=== PATIENT | female | born 1960 | race Caucasian/White ===

== ENCOUNTER 2025-03-27 16:38 | Inpatient (IN) | payer BC, SELFPAY ==
[2025-03-27] VITALS (13 sets, daily range): BP systolic 91–151; BP diastolic 52–107; PULSE 83–104; BMI 30.3; BMI 29.6
[2025-03-27 12:34] LABS: Glucose - Point of Care 107 mg/dl (70-99)
--- NOTE | 2025-03-27 12:35 | EDRN ---
ED Resident MD Dr. Echavarria in to see pt.
[2025-03-27 12:37] LABS: Hematocrit 39.5 % (37.0-47.0); Hemoglobin 13.7 g/dL (12.0-16.0); Mean Corp Hgb Conc. 34.7 g/dL (33.0-37.0); Mean Corpuscular Volume 91.0 fL (81.0-99.0); Nucleated Red Blood Cells % 0 %; Platelet Count 221 10^3/uL (130-400); Red Cell Dist. Width 13.0 % (11.5-14.5)
[2025-03-27] MEDS: NSS 1000 IV (12:38)
[2025-03-27] MEDS: ZOFRAN 4 MG IV (12:39)
--- NOTE | 2025-03-27 12:48 | EDRN ---
Pt w/ nausea and very somnolent and not wanting to speak.
--- NOTE | 2025-03-27 12:53 | ED.GENMED ---
History of Present Illness
<Bria Echavarria MD, Resident - Last Filed: 03/27/25 15:44>
General
Chief Complaint: Abdominal Symptoms
Source: patient and spouse
Time Seen by Provider: 03/27/25 12:17
History of Present Illness
History of Present Illness:
Patient is a 65-year-old female with past medical history significant for hyperlipidemia and obesity for which she is on statin and Mounjaro. She came in after she had a fall at [employer]. she does not remember the incident we's
And is currently feeling very tired, weak, exhausted, warm and nauseous.
She and her ran a couple of errands this morning, went out for breakfast, after that she went for shopping and the came back home. After a while, noticed her location, he called and was told by the EMS services that she was
being transferred to the ER because she had a fall at the store. Talking to the patient, she said that she does not remember the fall, it has not happened before, she is not on any blood thinners, she does not remember if she hit her head. Denies
any bleeding from ear nose or throat.
She has been on Mounjaro 7.5 mg for last 4 months and overall she has lost about 20 pounds throughout the year with weight loss medications.
Past History
<Bria Echavarria MD, Resident - Last Filed: 03/27/25 15:44>
Past History
ED Past Medical History: Hypercholesterolemia and Other (Obesity)
ED Past Surgical History: None
Social History
Tobacco: Non-smoker
Alcohol: Occasional
Drug: None
Personal:
Living: with family
Review of Systems
<Bria Echavarria MD, Resident - Last Filed: 03/27/25 15:44>
Review of Systems
Constitutional: Reports other (feels very weak)
EENT: Reports no symptoms
Respiratory: Reports no symptoms
Cardiac: Reports no symptoms
: Reports no symptoms
Musculoskeletal: Reports no symptoms
Skin: Reports no symptoms
Neurological: Reports no symptoms
Phy Exam
<Bria Echavarria MD, Resident - Last Filed: 03/27/25 15:44>
General Physical Exam
General Presentation: moderate distress
General age: appears stated age
General Skin: warm
General Habitus: normal
General Hydration: appears well hydrated
Cardiovascular Exam
Cardiovascular Exam: regular rate/rhythm, no edema, no gallop, no murmur and normal peripheral pulses
Pulmonary Exam
Pulmonary Exam: lungs clear and no respiratory distress
Gastrointestinal Exam
Gastrointestinal Exam: normal bowel sounds, non tender and soft
Neurological Exam
Neurological Exam: alert, oriented x3, no motor deficits and speech normal
Musculoskeletal Exam
Musculoskeletal Exam: full ROM
Skin Exam
Skin Exam: normal color and warm/dry
Psychiatric Exam
Psychiatric Exam: normal mood/affect
Course
<Bria Echavarria MD, Resident - Last Filed: 03/27/25 15:44>
Orders/Labs/Results
Orders:
Orders
03/27/25 12:24
Electrocardiogram (*1) Urgent
Reason for Study: Chest Pain
Cardiac Monitoring- Treatment ONCE
EKG- Treatment ONCE
03/27/25 12:30
Complete Blood Count/With Diff Urgent
Comprehensive Metabolic Panel Urgent
Troponin I Urgent
03/27/25 12:35
Ondansetron Injectable [Zofran] 4 mg .ROUTE .STK-MED ONE
03/27/25 12:37
0.9% Sodium Chloride 500 ml [Nss] 1,000 ml IV BOLUS
03/27/25 12:39
Ondansetron Injectable [Zofran] 4 mg IV NOW STA
03/27/25 13:01
Orthostatic VS- Treatment ONCE
03/27/25 13:10
CT Head W/o Iv Contrast Urgent
Comment:
Reason For Exam: mental status change
03/27/25 13:12
Urinalysis Reflex To Culture Urgent
03/27/25 13:19
D-Dimer Urgent
03/27/25 13:22
Prochlorperazine [Compazine] 10 mg IV NOW STA
03/27/25 13:23
Prochlorperazine [Compazine] 10 mg .ROUTE .STK-MED ONE
03/27/25 14:20
NEUROLOGY CONSULT Urgent
Consulting Provider: Riky Benavidez
Was physician already notified: Yes
Reason for consult: mental status change
03/27/25 14:44
MR Brain W/o & With Contrast Routine
Comment:
Reason For Exam: syncope suspected seizure
Recent pill cam endoscopy?: No
03/27/25 14:45
EEG Routine Routine
Reason for Exam: suspected seizure
03/27/25 14:51
Orthostatic Vital Signs As Directed
Orthostatic VS Frequency: BID
Abnormal Lab Results
03/27/25 03/27/25 03/27/25
12:30 12:33 13:19
MCH 31.6 H pg
(27.0-31.0)
Abs Immat Gran (auto) 0.1 H 10^3/uL
(0-0.05)
Immature Gran % 0.7 H %
(0-0.5)
Lymphocytes % 17.2 L %
(20.5-51.1)
D-Dimer 0.71 H ug/mlFEU
(0.00-0.50)
Glucose 111 H mg/dl
(70-99)
POC Glucose 107 H mg/dl
(70-99)
03/27/25 12:30
03/27/25 12:30
Vital Signs
Initial and Last Documented VS:
Initial Vital Signs
Pulse Resp BP Pulse Ox
93 18 109/74 95
03/27/25 11:47 03/27/25 11:47 03/27/25 11:47 03/27/25 11:47
Last Documented Vital Signs
Pulse Resp BP Pulse Ox
84 19 137/75 97
03/27/25 15:15 03/27/25 15:15 03/27/25 15:00 03/27/25 15:15
<Matt Nelson MD - Last Filed: 03/27/25 15:55>
Orders/Labs/Results
Orders:
Orders
03/27/25 12:24
Electrocardiogram (*1) Urgent
Reason for Study: Chest Pain
Cardiac Monitoring- Treatment ONCE
EKG- Treatment ONCE
03/27/25 12:30
Complete Blood Count/With Diff Urgent
Comprehensive Metabolic Panel Urgent
Troponin I Urgent
03/27/25 12:35
Ondansetron Injectable [Zofran] 4 mg .ROUTE .STK-MED ONE
03/27/25 12:37
0.9% Sodium Chloride 500 ml [Nss] 1,000 ml IV BOLUS
03/27/25 12:39
Ondansetron Injectable [Zofran] 4 mg IV NOW STA
03/27/25 13:01
Orthostatic VS- Treatment ONCE
03/27/25 13:10
CT Head W/o Iv Contrast Urgent
Comment:
Reason For Exam: mental status change
03/27/25 13:12
Urinalysis Reflex To Culture Urgent
03/27/25 13:19
D-Dimer Urgent
03/27/25 13:22
Prochlorperazine [Compazine] 10 mg IV NOW STA
03/27/25 13:23
Prochlorperazine [Compazine] 10 mg .ROUTE .STK-MED ONE
03/27/25 14:20
NEUROLOGY CONSULT Urgent
Consulting Provider: Riky Benavidez
Was physician already notified: Yes
Reason for consult: mental status change
03/27/25 14:44
MR Brain W/o & With Contrast Routine
Comment:
Reason For Exam: syncope suspected seizure
Recent pill cam endoscopy?: No
03/27/25 14:45
EEG Routine Routine
Reason for Exam: suspected seizure
03/27/25 14:51
Orthostatic Vital Signs As Directed
Orthostatic VS Frequency: BID
Abnormal Lab Results
03/27/25 03/27/25 03/27/25
12:30 12:33 13:19
MCH 31.6 H pg
(27.0-31.0)
Abs Immat Gran (auto) 0.1 H 10^3/uL
(0-0.05)
Immature Gran % 0.7 H %
(0-0.5)
Lymphocytes % 17.2 L %
(20.5-51.1)
D-Dimer 0.71 H ug/mlFEU
(0.00-0.50)
Glucose 111 H mg/dl
(70-99)
POC Glucose 107 H mg/dl
(70-99)
03/27/25 12:30
03/27/25 12:30
Vital Signs
Initial and Last Documented VS:
Initial Vital Signs
Pulse Resp BP Pulse Ox
93 18 109/74 95
03/27/25 11:47 03/27/25 11:47 03/27/25 11:47 03/27/25 11:47
Last Documented Vital Signs
Pulse Resp BP Pulse Ox
84 19 137/75 97
03/27/25 15:15 03/27/25 15:15 03/27/25 15:00 03/27/25 15:15
<Bria Echavarria MD, Resident - Last Filed: 03/27/25 15:44>
MDM/Problems Addressed
Differential Diagnosis Includes:
Stroke/TIA
Seizures
Vasovagal syncope
Arrhythmias
Metabolic
MDM/Problems Addressed:
CBC and CMP within normal limits
CT scan done-no acute abnormalities noted
EKG without any acute abnormalities
Troponin normal
Neurology consult appreciated-high likelihood of seizure activity given the postictal confusion and tongue bite. Recommended further evaluation on an inpatient basis-would admit on hospitalist service
<Bria Echavarria MD, Resident - Last Filed: 03/27/25 15:44>
*Pulse Oximetry
SaO2: 99
Oxygen Mode of Delivery: Room air
Patient hypoxic: no
*Critical Care Note
Total Time (30-74mins, 75-104mins- exclusive of procedures): Not Applicable
ED Attending Note
<Bria Echavarria MD, Resident - Last Filed: 03/27/25 15:44>
-
Portions of this chart may have been created with voice recognition software.� Occasional wrong word or��sound alike� substitutions may have occurred due to the inherent limitations of voice recognition software.
<Matt Nelson MD - Last Filed: 03/27/25 15:55>
ED Attending Note
Patient seen and examined by attending physician: Yes
ED Attending Note:
Patient with history of hypercholesterolemia, current taking Mounjaro for weight loss, presents to ED after unwitnessed syncopal episode while she was shopping at [employer] this morning. 911 dispatched by employers at [employer]. When arrived at scene,
patient was awake, but had already vomited and complaining of generalized weakness. Patient does report having remembered entering [employer] to purchase plants, but that is her last recollection until 911 or. Patient denies headache. Patient is
still complaining of feeling nauseous. Denies blurred vision. Denies loss of sensation or weakness. Denies difficulty with speech. Patient is quite somnolent but easily arousable and appropriate answering questions. Per spouse at bedside, he
did not detect anything different with the patient this morning. In fact, patient was able to go to a car dealership to have the car looked into and had breakfast with her before they . Of note, approxi-14 years ago, patient
significant lightheaded episode while at [employer], requiring evaluation in the hospital. Since then, patient has been following up with local major case detective annually. Denies recent illness. Denies recent change in medications or diet. Denies
previous history of similar symptoms. In addition, spouse reports vacationing down in [place] recently. They did drive down to [place], but made multiple trips following the way.
Physical Exam
General: mild distress, acutely ill. afebrile
Head: nc/at. eomi
Neck: supple. no meningeal signs.
Heart: s1/s2 regular rate and rhythm
Lungs: no acute respiratory distress. clear bilaterally
Abdomen: normal bowel sounds. not tender.
Neuro: somnolent but easily arousable to voice and appropriate. no focal neurological deficits
Skin: no rash
Psychiatric: well kept. interactive and cooperative
Extremities: no edema. no calf tenderness.
CT head: no acute findings.
Patient evaluated in ED by neurology, Dr. Benavidez, who recommends patient to be admitted for further evaluation and treatment, including obtaining MRI brain along with EEG.
DMV - temporary license suspension, to be completed by neurology office
Discharge Plan
Departure
Patient Disposition: Admit
Date of Disposition: 03/27/25
Time of Disposition: 15:41
Presentation/result/management discussed w/ accepting MD/DO: Hospitalist
Patient with high blood pressure during this ER visit?: No
Discharge Problem:
Post-ictal confusion, Syncope
Interventions
Interventions:
*Risk Screen - Suicide Last Done: 03/27/25 12:16
*General Assessment Last Done: 03/27/25 12:16
*Neglect/Abuse Screening Last Done: 03/27/25 12:16
*ED COVID-19 Vaccine History Last Done: 03/27/25 12:16
*ED Influenza Vaccine History Last Done: 03/27/25 12:16
[facility] Fall Risk Assessment Tool Last Done: 03/27/25 12:16
GP-Tfsueg-Kozglhqwnl Assessment Last Done: 03/27/25 12:40
ED- Cardiac Assessment Last Done: 03/27/25 12:40
ED- Neurological Assessment Last Done: 03/27/25 12:40
Discharge Date and Time
Print Language: GREEK
[2025-03-27 13:07] LABS: ALT (SGPT) 27 U/L (0-35); AST (SGOT) 29 U/L (14-36); Albumin 4.3 g/dl (3.5-5.0); Alkaline Phosphatase 76 U/L (38-126); Blood Urea Nitrogen 9 mg/dl (7-17); Calcium 9.3 mg/dl (8.4-10.2); Carbon Dioxide 24 mmol/L (22-30); Chloride 105 mmol/L (98-107); Estimated Creatinine Clearance 83 ml/min; Glucose 111 mg/dl (70-99); Potassium 4.2 mmol/L (3.5-5.1); Sodium 136 mmol/L (135-145); Total Protein 7.0 g/dl (6.3-8.2); eGFR > 60.00
--- NOTE | 2025-03-27 13:10 | EDRN ---
Pt has orthostats ordered though very somnolent at this time. Will monitor pt for less somnolence prior to to getting orthostats. Will informed Dr. Echavarria.
[2025-03-27 13:19] LABS: Troponin I 0.013 ng/ml
--- NOTE | 2025-03-27 13:26 | EDRN ---
Dr. Nelson in formed of pt's present status of alertness and return of nausea and compazine ordered for nausea and he wants CT ARUNA w/ amortization schedule clerk informed.
[2025-03-27] MEDS: COMPAZINE 10 MG IV (13:27)
--- NOTE | 2025-03-27 13:30 | EDRN ---
Dr. Nelson in room w/pt at this time.
[2025-03-27 13:48] LABS: D-Dimer 0.71 ug/mlFEU (0.00-0.50)
--- NOTE | 2025-03-27 14:06 | EDRN ---
Pt's color sl improved, still weak and somnolent. States nausea gone for now.
--- NOTE | 2025-03-27 14:18 | CON.NEURO ---
Addendum entered and electronically signed by Riky Benavidez MD 03/27/25 19:08:
The patient was seen and examined today along with the nurse practitioner Mariya Del Toro. I agree with the assessment and management and plan of the nurse practitioner. I personally performed the medical decision making of this encounter and my
assessment and management plan as given below.
The patient is a 65-year-old female with history of hypercholesterolemia who presented to the ER on 03/27/2025, by the EMS services because she had a fall at a store. The patient does not remember the event and she says that she woke up while she
was being transferred by the ambulance and apparently she was in a postictal state for about 15 to 20 minutes.. The patient complains of a left-sided tongue bite however she denies any urinary incontinence. The patient's and the daughter
were present at the bedside to provide the history. The patient felt dizzy and also had vomited and complained of generalized weakness. The patient's mental status has returned to her baseline as per her and her daughter.
The patient appears to have had a seizure which appears to be more likely than a syncopal episode, as she had a significant left-sided tongue laceration and she had a postictal state lasting about 15 to 20 minutes. The plan is to obtain MRI of the
brain with and without contrast, EEG and to check orthostatic vitals. The patient does not have a history of seizures. This was likely a new onset seizure, therefore, the plan is not to start her on antiepileptic medication at this time. Patient
also gives a history of sleep deprivation which could have triggered the seizure.
Seizure precautions including no driving for 6 months and reporting to the [facility] as per law. The seizure precautions was discussed with the patient, patient's and patient's daughter, and they all verbalized understanding of our discussion.
Neurologic examination:
Alert and oriented x 3
Speech is clear
The cranial nerves II through XII are grossly intact
The visual mclaughlin are grossly full to confrontation bilaterally
The motor strength is grossly 5/5 bilaterally in the upper and lower extremities
Sensation is grossly intact
The cerebellar examination does not show limb ataxia
Original Note:
Neuro Assessment/Plan
Assessment
Patient is a 65 year old female with history of hypercholesterolemia, current taking Mounjaro for weight loss, presented to [facility] on 03/27/2025 after unwitnessed syncopal episode
Head CT: Unremarkable unenhanced CT of the brain
Plan
Differentials: seizure highly likely given post ictal state and tongue laceration vs syncope vs orthostatic hypotension
-obtain brain MRI with and without contrast
-obtain EEG
-seizure precautions
-orthostatic VS BID
-pending testing and further episodes may need antiepileptic medications
All questions encouraged and answered, plan of care discussed with Dr. Benavidez, patient and family
Consultation
Order
Date of Consultation: 03/27/25
Requesting Provider: ED
Reason for Consult: syncope
Subjective/Objective
Subjective Data
Date of Service: March 27, 2025
Patient is a 65 year old female with history of hypercholesterolemia, current taking Mounjaro for weight loss, presented to [facility] on 03/27/2025 after unwitnessed syncopal episode while she was shopping at [employer] this morning. 911 dispatched by
employers at [employer]. When arrived at scene, patient was awake, but had already vomited and complaining of generalized weakness. Patient does report having remembered entering [employer] to purchase plants, and then nothing until she was in the
ambulance. She states before she passed out she felt 'weird.' Patient denies headache, SOB, chest pain. Denies urinary incontinence but has tongue laceration on left side indicating that she bit her tongue during episode. Patient is still
complaining of feeling nauseous. Denies blurred vision. Denies loss of sensation or weakness. Denies difficulty with speech. Patient in ED initially somnolent but easily arousable and appropriate answering questions. Per spouse and daughter at
bedside, did not detect anything different with the patient this morning. In fact, patient was able to go to a car dealership to have the car looked into and had breakfast with her before they . Of note, approximately 14 years
ago, patient significant lightheaded episode while at [employer], requiring evaluation in the hospital. At that time she went on a roller coaster and after felt dizzy, lightheaded and nauseous but did not lose consciousness. Since then, patient
has been following up with local hand bootmaker annually. Denies recent illness. Denies recent change in medications or diet. Denies previous history of similar symptoms. Does admit to stress and sleep deprivation. Denies history or family history
of seizures. In ED labs unrevealing and head CT unremarkable. Per family mentation improving.
Objective Data
Vital Signs
Pulse Resp BP Pulse Ox
85 19 138/95 99
03/27/25 14:03 03/27/25 13:30 03/27/25 14:03 03/27/25 13:30
Lab Results
03/27/25 12:30
03/27/25 12:30
Sodium 136 mmol/L (135-145) 03/27/25 12:30
Potassium 4.2 mmol/L (3.5-5.1) 03/27/25 12:30
BUN 9 mg/dl (7-17) 03/27/25 12:30
Glucose 111 mg/dl (70-99) H 03/27/25 12:30
Calcium 9.3 mg/dl (8.4-10.2) 03/27/25 12:30
Patient Allergies
No Known Allergies Allergy (Unverified 03/27/25 11:46)
Physical Exam
-
General: Appears Stated Age
HEENT: Normocephalic, Atraumatic and Anicteric
Neck: Full Range of Motion
Respiratory: No Dyspnea
Cardiac: No JVD
GI: Non-distended
Skin: Unremarkable
Extremities: No Clubbing, No Cyanosis and No Edema
Psych: Unremarkable
Extended Neurological Exam
Mood & Affect: Mood Unremarkable
Attention Span & Concentration: Awake, Alert, Interactive and No Difficulty with 2 Step Request
Memory: Unremarkable
Speech: Quality Unremarkable, Quantity Unremarkable and Rate of Production Unremarkable
Cranial Nerve VII: Facial Symmetry: Normal Facial Symmetry
Cranial Nerve VIII: Hearing: Unremarkable Hearing to Normal Conversational Volume
Muscle Strength, Overall: Full Throughout
Pronator Drift: No Drift in Upper Extremities and No Drift in Lower Extremities
Data Reviewed
-
CT Head: Report Reviewed and Image Reviewed
Medical Test Reports: Report Reviewed
Labs: Report Reviewed
Reviewed with: Physician and Patient
Old Records: Summarized
Past History
Past History
ED Past Medical History: Hypercholesterolemia and Other (Obesity)
ED Past Surgical History: None
Family/Social History
Tobacco: Non-smoker
Alcohol: Occasional
Drug: None
Personal:
Living: with family
--- NOTE | 2025-03-27 14:40 | EDRN ---
Neurologist Dr. Benavidez and MOLYBDEN[employer] STEAMER OPERATOR in to see pt at this time.
--- NOTE | 2025-03-27 15:30 | EDRN ---
Pt screening for MRI at this time.
--- NOTE | 2025-03-27 15:44 | EDRN ---
Pt is wide awake, talkative, and color is normal
--- NOTE | 2025-03-27 16:11 | HPS.HSE ---
Family Physician
-
Family Physician: Aurelio Saleh
Chief Complaint
-
Syncope
History of Present Illness
65-year-old female with history of hyperlipidemia presents after unwitnessed syncopal episode . Patient notes that she was in a shopping center and she passed out and the next thing she remembers that she was in the ambulance. On arrival to the ED
head CT is unremarkable. She does have a tongue laceration on the left. Pt notes that she may had urinary incontinence during the event. Patient is on Mounjaro for weight loss.
Medical History
Past Medical History
Past Medical History: Reports Hypercholesterolemia
Past Surgical History: Reports Gynocological (Tubal ligation)
Social History
Tobacco: Non-smoker
Alcohol: None
Drug: None
Personal:
Living: With Family
Employment: Retired
Family History
Family History: Not pertinent
Allergies / Home Medications
Allergies reflects when Allergies were last updated in [facility].
Home Medications with original date entered in [facility]
Allergy/Medication List:
Allergies
Allergy/AdvReac Type Severity Reaction Status Date / Time
No Known Allergies Allergy Unverified 03/27/25 11:46
Review of Systems
-
History Source: Patient
A 12 point ROS was completed and negative except as noted: Yes
Physical Exam
Vital Signs
Vital Signs
Pulse Resp BP Pulse Ox
84 19 137/75 97
03/27/25 15:15 03/27/25 15:15 03/27/25 15:00 03/27/25 15:15
Physical Exam
General: Comfortable and Conversant
HEENT: NormoCephalic, Anicteric and Moist mucous membranes
Respiratory: Clear
Cardiac: S1/S2 and Regular Rhythm
GI: Soft, Non Tender, Non Distended and Normal Bowel Sounds
Musculoskeletal: No Edema
Skin: Warm and Dry
Neuro: AO x 3, No Motor Deficits, Cranial Nerves Intact, No Sensory Deficits and Other (Tongue laceration left lateral ); No Slurred Speech, Facial Droop or Tremors
Hematologic/Lymphatic: No Lymphadenopathy
Psych: Calm
Laboratory Results
-
03/27/25 12:30
03/27/25 12:30
Laboratory Results
Total Bilirubin 0.4 mg/dl (0.2-1.3) 03/27/25 12:30
AST 29 U/L (14-36) 03/27/25 12:30
ALT 27 U/L (0-35) 03/27/25 12:30
Alkaline Phosphatase 76 U/L (38-126) 03/27/25 12:30
Troponin I 0.013 ng/ml 03/27/25 12:30
Data Reviewed
-
CT Scan: Report Reviewed by me and Discussed with Physician
Lab Data: Labs Reviewed by me and Discussed with Physician
Impression/Plan
-
IMPRESSION:
Unwitnessed syncopal episode
Hyperlipidemia
Morbid obesity
PLAN:
Unwitnessed syncopal episode
Differential diagnosis: Seizure, stroke, vasovagal/orthostatic hypotension, hematoma, medications
+ tongue laceration left lateral
No prior history of seizure/stroke/NH.
CT head is unremarkable for hemorrhage/hematoma
No new medications except Mounjaro--- unlikely to cause seizure/stroke.
Check check brain MRI to rule out ischemic stroke
Check EEG to look for seizure
Orthostatic vitals twice daily
Monitor closely
Neurology aware
Hyperlipidemia
She is on a statin home dose.
Continue
Morbid obesity
Hold Mounjaro
Full code
SCD
regular diet
--- NOTE | 2025-03-27 16:22 | EDRN ---
Pt OOB to [facility] and back with daughter so did not get (released by resident who saw her from monitoring) so did not get a urine spec. Pt given kit and urine spec requested.
--- NOTE | 2025-03-27 16:36 | W.PN.UPDATE ---
Update Note
Progress Note Update
This note serves as an addendum to the H&P by metal sponge making machine operator MICKY�
PGY3
HPI
65F Non smoker, Obese, HLD seen at ER:
- eval for unwitnessed syncopal episode
- she was in a shopping center and she passed out and the next thing she remembers that she was in the ambulance.
- On arrival to the ED head CT is unremarkable.
- Noted tongue laceration on the left
- may had urinary incontinence during the event.
Patient is on Mounjaro for weight loss.
Relevant VS
Pulse Resp BP Pulse Ox
90 18 149/99 99
03/27/25 16:15 03/27/25 15:45 03/27/25 16:00 03/27/25 16:15
PE
Gen:coherent , conversant , appropriated
HEENT: large toungue laceration at Lt lateral margin
Neck: supple
Lungs: CTA
Cor:RRR S1 S2
Abdomen:�soft NT
MORNING BABYSITTER: AAO3, NFND
MS:No edema
Psych:Nl mood
Relevant Data�
03/27/25 03/27/25 03/27/25
12:30 12:33 13:19
WBC 8.2
Hgb 13.7
Lymphocytes % 17.2 L
D-Dimer 0.71 H
Creatinine 0.7
eGFR > 60.00
Troponin I 0.013
POC Glucose 107 H
HCT: Unremarkable unenhanced CT of the brain
NO PRIOR hospitalist admission:
ASSESSMENT & PLAN
Unwitnessed syncopal episode with + tongue laceration left lateral and urinary incontinence
Differential diagnosis: most likely Seizure > stroke > vasovagal/orthostatic hypotension, hematoma, medications
No prior history of seizure/stroke/CO.
- NEG HCT
- No new medications except Mounjaro--- unlikely to cause seizure/stroke.
- For brain MRI to rule out ischemic stroke
- EEG to look for seizure
- Orthostatic vitals twice daily
- Monitor closely
-Neurology consulted
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
Morbid obesity: on Mounjaro for months
DVT Px: SCD
Full Code
IP TLM
--- NOTE | 2025-03-27 16:40 | EDRN ---
Pt ambulated to [facility] and voided providing a urine spec.
--- NOTE | 2025-03-27 16:46 | EDRN ---
Dr. Mujica in room w/ pt at this time.
[2025-03-27 17:09] LABS: Urine Character Clear (Clear)
[2025-03-27 20:36] LABS: Magnesium 2.3 mg/dl (1.6-2.3)
[2025-03-27] MEDS: TYLENOL 650 MG PO (20:44)
--- NOTE | 2025-03-27 21:00 | PTCARENOTE ---
Patient arrived from the ED via stretcher. Patient ambulated into the room with assistance. Accompanied by spouse. AAOx3, VSS. No c/o light headedness or dizziness. Pt's tongue is red and sollen from biting tongue earlier during syncopal episode. No
other wounds present. Patient and spouse educated on fall risk. Fall risk band intact. Updated on plan of care. Call hall is within reach.
[2025-03-27] MEDS: LIPITOR 10 MG PO (21:04)
[2025-03-27 21:37] LABS: Vitamin B12 245 pg/ml (239-931)
[2025-03-28 02:57] VITALS: BP 107/61
[2025-03-28 07:37] LABS: Hematocrit 38.6 % (37.0-47.0); Hemoglobin 13.3 g/dL (12.0-16.0); Mean Corp Hgb Conc. 34.5 g/dL (33.0-37.0); Mean Corpuscular Volume 91.0 fL (81.0-99.0); Nucleated Red Blood Cells % 0 %; Platelet Count 237 10^3/uL (130-400); Red Cell Dist. Width 13.2 % (11.5-14.5)
[2025-03-28 08:05] VITALS: BP 125/81
[2025-03-28 08:05] LABS: Blood Urea Nitrogen 6 mg/dl (7-17); Calcium 9.4 mg/dl (8.4-10.2); Carbon Dioxide 29 mmol/L (22-30); Chloride 105 mmol/L (98-107); Estimated Creatinine Clearance 96 ml/min; Glucose 87 mg/dl (70-99); Potassium 4.2 mmol/L (3.5-5.1); Sodium 138 mmol/L (135-145); eGFR > 60.00
[2025-03-28 09:43] LABS: Troponin I 0.014 ng/ml
--- NOTE | 2025-03-28 11:19 | W.PN.HOSP.TC ---
Today's Communication/Plan
-
Monitor vital signs
see plan
Discussed with neurology, EEG negative
[facility]
Dis[facility] with outpatient neurology follow-up
Advised patient to follow-up with cardiology as well
Time of discharge 36 minutes
Assessment / Plan
Assessment / Plan
General: Comfortable and Conversant
HEENT: NormoCephalic, Anicteric and Moist mucous membranes
Respiratory: Clear
Cardiac: S1/S2 and Regular Rhythm
GI: Soft, Non Tender, Non Distended and Normal Bowel Sounds
Musculoskeletal: No Edema
Neuro: AO x 3, No Motor Deficits, Cranial Nerves Intact, No Sensory Deficits and Other (Tongue laceration left lateral ); No Slurred Speech, Facial Droop or Tremors
Psych: Calm
IMPRESSION:
Unwitnessed syncopal episode
Hyperlipidemia
Morbid obesity
PLAN:
Unwitnessed syncopal episode, appears likely 2/2 seizure given tongue bite. per neurology no antiepileptic needed at this time
+ tongue laceration left lateral
No prior history of seizure/stroke/AZ.
CT head is unremarkable for hemorrhage/hematoma
No new medications except Mounjaro--- unlikely to cause seizure/stroke.
MRI with contusion. Discussed with neurology. EEG negative. Okay to discharge from neurology standpoint. Also advised patient to follow-up with cardiology.
[facility]
Orthostatic neg
neurology following
Hyperlipidemia
She is on a statin home dose.
Continue
Morbid obesity
Hold Mounjaro
Full code
SCD
Anticipated Discharge: Today
Subjective/Interval History
-
Date of Service: March 28, 2025
Objective Data
-
Labs:
Laboratory Results
03/28/25
06:32
WBC 6.5
Hgb 13.3
Hct 38.6
Plt Count 237
Sodium 138
Potassium 4.2
Chloride 105
Carbon Dioxide 29
BUN 6 L
Creatinine 0.6
Glucose 87
Calcium 9.4
Vital Signs:
Vital Signs
Temp Pulse Resp BP Pulse Ox
98.5 F 67 18 125/81 96
03/28/25 08:05 03/28/25 08:05 03/28/25 08:05 03/28/25 08:05 03/28/25 08:10
I&O
03/27/25 03/28/25 03/29/25
06:59 06:59 06:59
Intake Total 960 / 960
Balance 960 / 960
[2025-03-28 11:39] VITALS: BP 125/80; BP 135/82; BP 135/89; PULSE 88; PULSE 89; PULSE 93
--- NOTE | 2025-03-28 11:44 | W.DCSUMMARY ---
Discharge Summary
Discharge Data
Date of Admission: 03/27/25
Date of Discharge: 03/28/25
-
Pending Results: No
Hospital Course
65-year-old female with past medical history of morbid obesity, hyperlipidemia came to the hospital after unwitnessed syncopal episode. Per patient's symptoms it appeared that patient likely had a seizure episode. CT scan was done which was
negative. MRI was later done which showed contusion. Patient was seen by neurology throughout hospitalization. She also had routine EEG which was negative. Given her concern for seizure neurology recommended patient to be reported to [facility]
which their office will do. Given her first seizure, neurology did not recommend any antiepileptic and wanted to follow-up with patient outpatient. Patient was also instructed to follow-up with cardiology outpatient. Once her symptoms continue to
improve, she was then discharged home with instructions to follow-up with all her physicians outpatient.
Discharge Plan
-
Patient Disposition: Home (Routine Discharge)
Discharge Diagnosis/Procedures: Syncope
Suspect seizure
Contusion
Condition: Fair
Diet: As tolerated
Activity: As tolerated
Driving Restrictions: No driving for 6 months
Bathing Restrictions: None
Activity Restrictions/Additional Instructions:
Per [place] law[facility]
Referrals:
Aurelio Saleh MD [Family Provider, Family Practice] - in less than 1 week
Stefan Ingram MD [Active, Neurology] - in two weeks
Prescriptions:
New
acetaminophen 325 mg Tablet
650 mg PO Q4HPRN PRN (Reason: mild pain/RASMUSSEN/temp> 100.4F) Qty: 0 0RF
Continued
atorvastatin 10 mg Tablet
10 mg PO HS
Discharge Orders:
Discharge Patient (As Directed); Ordered 03/28/25
Ordered By: Christopher Costa
Discharge Date and Time
Discharge Date/Time: 03/28/25 13:32
Print Language: BULGARIAN
[2025-03-28] MEDS: FLUZONE (6 mos+) 2025-2026 FORMULA 0.5 ML IM (12:30)
--- NOTE | 2025-03-28 12:41 | W.PN.NEURO.1 ---
Documented by User: Deanna Elise NP 03/28/25 12:51
Today's Communication / Plan
-
.
Neuro Assessment/Plan
Assessment
Patient is a 65 year old female with history of hypercholesterolemia, current taking Mounjaro for weight loss, who presented to [facility] on 03/27/2025 after a syncopal event while shopping at a store consisting of tongue laceration and a 20 minute
postictal state.
-CT head 03/27/25: Unremarkable unenhanced CT of the brain.
-MRI brain w/ and w/o contrast 03/27/25: No evidence of acute intracranial abnormality. There is paranasal sinus disease including small air-fluid levels within the left sphenoid sinus and the maxillary sinuses bilaterally. Please correlate with any
symptoms that would suggest acute sinusitis. No evidence for hemodynamically significant stenosis of either carotid bulb or proximal internal carotid artery. There is no evidence for significant narrowing of vertebral arteries. Basilar artery is
slightly hypoplastic. Both posterior cerebral arteries are supplied mainly from the posterior communicating arteries. No significant narrowing of the intracranial circulation. There is no CT angiographic evidence for intracranial aneurysm.
-EEG 03/28/25: final report pending, results normal per Dr. Benavidez.
I. Syncopal event was likely a seizure given tongue laceration and prolonged confusion/postictal state following the event. This event was possibly induced by sleep deprivation.
Plan
-Monitor off of antiseizure medications for now as this was the first occurrence and possibly provoked by sleep deprivation.
-Consideration for extended EEG monitoring as an outpatient.
-seizure precautions; avoid swimming/bathing alone, avoid climbing ladders/trees/operating a chain saw.
-orthostatic VS BID
-DVT prophylaxis.
-This event is required by [place] state law to be reported to [facility], no driving until event free for 6 months.
-Follow-up with Neurology as an outpatient.
All questions encouraged and answered, plan of care discussed with Dr. Benavidez, patient and family
Subjective/Objective
Subjective Data
Date of Service: March 28, 2025
No acute events overnight. Patient reports feeling at her baseline except for left tongue pain.
Objective Data
Vital Signs
Temp Pulse Resp BP Pulse Ox
98.2 F 67 18 125/81 97
03/28/25 11:39 03/28/25 08:05 03/28/25 11:39 03/28/25 08:05 03/28/25 11:39
Lab Results
03/28/25 06:32
03/28/25 06:32
Sodium 138 mmol/L (135-145) 03/28/25 06:32
Potassium 4.2 mmol/L (3.5-5.1) 03/28/25 06:32
BUN 6 mg/dl (7-17) L 03/28/25 06:32
Glucose 87 mg/dl (70-99) 03/28/25 06:32
Calcium 9.4 mg/dl (8.4-10.2) 03/28/25 06:32
Vitamin B12 245 pg/ml (239-931) 03/27/25 12:30
Patient Allergies
No Known Allergies Allergy (Unverified 03/27/25 11:46)
Review of Systems
-
History Source: Patient
EENT: Negative Blurry Vision, Decreased Vision or Swallowing Difficulty
Respiratory: Negative Trouble Breathing
Cardiac: Negative Chest Pain or Palpitations
Neuro: Negative Dizzy, Headache, Weakness, Numbness, Ataxia, Tremors or Speech Problem
Physical Exam
-
General: No Apparent Distress
Eyes: No Ptosis and PERRLA
HEENT: Normocephalic and Atraumatic
Neck: Full Range of Motion
Respiratory: No Dyspnea
GI: Non-distended
Extremities: No Clubbing, No Cyanosis and No Edema
Extended Neurological Exam
Mood & Affect: Mood Unremarkable and Affect Unremarkable
Attention Span & Concentration: Awake, Alert and Interactive
Memory: Unremarkable and Able to Recall
Tremor: Hand Tremor Absent and Head Tremor Absent
Involuntary Movement: None
Speech: Quality Unremarkable, Quantity Unremarkable and Rate of Production Unremarkable
Cranial Nerve VII: Facial Symmetry: Normal Facial Symmetry
Cranial Nerve VIII: Hearing: Unremarkable Hearing to Normal Conversational Volume
Cranial Nerve XII: Tongue Protusion: Midline and Other (large left tongue laceration)
Muscle Strength, Overall: Full Throughout
Pronator Drift: No Drift in Upper Extremities
Coordination: [id number] Testing Unremarkable
Data Reviewed
-
CT Head: Report Reviewed and Image Reviewed
MRI Head: Report Reviewed and Image Reviewed
EEG: Report Reviewed
Labs: Report Reviewed
Reviewed with: Physician, Patient and Family
Medications
-
Active Medications
Generic Name Dose Route Start Last Admin
Trade Name Freq PRN Reason Stop Dose Admin
Acetaminophen 650 mg 03/27/25 19:42 03/27/25 20:44
Acetaminophen 325 Mg Tablet PO 04/24/25 19:41 650 mg
Q4HPRN PRN Administration
mild pain/RASMUSSEN/temp> 100.4F
Atorvastatin Calcium 10 mg 03/27/25 22:00 03/27/25 21:04
Atorvastatin (Lipitor) 10 Mg Tablet PO 04/24/25 21:59 10 mg
HS PATRIA Administration
Bisacodyl 10 mg 03/27/25 19:42
Bisacodyl 10 Mg Rectal Suppository RECTAL 04/24/25 19:41
[id number] PRN
constipation
Ibuprofen 400 mg 03/27/25 19:42
Ibuprofen 400 Mg Tablet PO 04/24/25 19:41
Q6HPRN PRN
mild pain
Polyethylene Glycol 17 grams 03/27/25 19:42
Polyethylene Glycol Powder 17 Grams Packet PO 04/24/25 19:41
DAILYPRN PRN
constipation
Senna/Docusate Sodium 1 tablet 03/27/25 19:42
Docusate W/Senna (Edna-Colace) Tablet PO 04/24/25 19:41
BIDPRN PRN
constipation
Sodium Chloride 0 flush 03/27/25 21:00
Sodium Chloride 0.9% (Flush) Syringe IV 04/24/25 20:59
PER PROTOCOL PATRIA
Home Medications
�Medication �Instructions �Recorded
atorvastatin 10 mg tablet 10 mg PO HS 03/27/25
acetaminophen 325 mg tablet 650 mg (2 x 325 mg) PO Q4HPRN PRN 03/28/25
mild pain/RASMUSSEN/temp> 100.4F #0 tabs

Documented by User: Riky Benavidez MD 03/28/25 21:02
Today's Communication / Plan
-
.
No acute events overnight. Patient reports feeling at her baseline except for left tongue pain.
The neurologic examination is normal and unchanged from yesterday.
-Monitor o of antiseizure medications for now as this was the first occurrence and possibly provoked by sleep deprivation.
-Consideration for extended EEG monitoring as an outpatient.
-seizure precautions; avoid swimming/bathing alone, avoid climbing ladders/trees/operating a chain saw.
-orthostatic VS BID
-DVT prophylaxis.
-This event is required by [place] state law to be reported to [facility], no driving until event free for 6 months.
-Follow-up with Neurology as an outpatient.
I had a detailed discussion with the patient and her family regarding assessment and management plan including seizure precautions, and they all verbalized understanding of the discussion.
Subjective/Objective
Subjective Data
Date of Service: March 28, 2025
Patient is a 65 year old female with history of hypercholesterolemia, current taking Mounjaro for weight loss, who presented to [facility] on 03/27/2025 after a seizure versus a syncopal event while shopping at a store consisting of tongue laceration and
a 20 minute postictal state.
No acute events overnight. Patient reports feeling at her baseline except for left tongue pain.
The neurologic examination is normal and unchanged from yesterday.
-Monitor o of antiseizure medications for now as this was the first occurrence and possibly provoked by sleep deprivation.
-Consideration for extended EEG monitoring as an outpatient.
-seizure precautions; avoid swimming/bathing alone, avoid climbing ladders/trees/operating a [employer] saw.
-orthostatic VS BID
-DVT prophylaxis.
-[facility] by [place] state law [facility] until event free for 6 months.
-Follow-up with Neurology as an outpatient.
I had a detailed discussion with the patient and her family regarding assessment and management plan including seizure precautions, and they all verbalized understanding of the discussion.
Medications
-
Home Medications
�Medication �Instructions �Recorded
atorvastatin 10 mg tablet 10 mg PO HS 03/27/25
acetaminophen 325 mg tablet 650 mg (2 x 325 mg) PO Q4HPRN PRN 03/28/25
mild pain/RASMUSSEN/temp> 100.4F #0 tabs
--- NOTE | 2025-03-28 13:51 | CM ---
Alert awake oriented patient who lives with Familia in a 2 story home with 2 steps to enter and 12 steps to bed/bathroom. She is independent in driving and ADLs.Offered VN she declined need.
No DME
No VN/SNF hx
Pharmacy [facility]
PCP Dr Carey
PLAn : Home no needs
--- NOTE | 2025-03-28 21:11 | EEG.RPT ---
Electroencephalogram Report
Recording
Date of EE03/28/25
Type of EEG: Routine
Done with Video Recording: Yes
Patient Status: Inpatient
Recording Conditions: Awake and Drowsy
Hyperventilation Performed: Yes
Photic Stimulation Performed: Yes
Report
Clinical methods:
A 21-channel digitized electroncephalogram was performed. The 10-20 International system of electrode placement was used. ECG was monitored. Video was recorded.
EEG interpretation:
The posterior dominant rhythm was in the alpha range.
The background rhythm did not show any asymmetry of amplitude or frequency between the hemispheres.
Hyperventilation was performed and did not show any significant change.
Photic stimulation was performed and it failed to produce activation.
There was no definite epileptiform activity seen.
Clinical correlation:
This is a normal awake and drowsy state routine EEG. A normal EEG does not rule out the diagnosis of epilepsy which is made on a clinical basis. If concerns remain, a repeat study using prolonged digital monitoring may be of assistance. Clinical
correlation is recommended.
== END 2025-03-28 13:32 | disposition home or self-care (01) | DRG 101 ==
LOC: 4 EAST ACU 16:38
PROVIDERS: Emergency Medicine; Student in an Organized Health Care Education/Training Program; ADMITTING PHYSICIAN Internal Medicine; ATTENDING PHYSICIAN Internal Medicine; CONSULT PHYSICIAN Psychiatry & Neurology Neurology; EMERGENCY PHYSICIAN Emergency Medicine; FAMILY PHYSICIAN Family Medicine
PROC: 3E02340 Introduction of Influenza Vaccine into Muscle, Percutaneous Approach (ICD-10-PCS; 2025-03-28)
DX: R56.9 Unspecified convulsions (principal); R55 Syncope and collapse; E66.01 Morbid (severe) obesity due to excess calories; Z68.29 Body mass index [BMI] 29.0-29.9, adult; S01.512A Laceration without foreign body of oral cavity, initial encounter; W19.XXXA Unspecified fall, initial encounter; Z72.820 Sleep deprivation; Z23 Encounter for immunization
CPT/HCPCS: 70450; 70553; 80048; 80053; 81003; 82607; 82962; 83735; 84484; 85025; 85379; 90656; 93005; 95816; 96374; 96375; 99285; A9575; G0008